=== PATIENT | female | born 1965 | race Hispanic/Latino ===

== ENCOUNTER 2017-01-24 12:13 | Day surgery (SDC) | payer OTHER ==
[2017-01-11 20:21] VITALS: BMI 26.6
[2017-01-24 12:57] LABS: ADD MANUAL DIFF? NO
[2017-01-24 13:09] LABS: ALB/GLOB RATIO 1.4 (1.1-1.8); ALKALINE PHOSPHATASE 105 U/L (38-133); ALT/SGPT 60 U/L (7-56); AST/SGOT 85 U/L (15-39); BILIRUBIN,TOTAL 0.5 mg/dL (0.2-1.3); BLOOD UREA NITROGEN 9 mg/dL (7-21); CALCIUM 9.3 mg/dL (8.4-10.5); CARBON DIOXIDE 30 mmol/L (21-33); CHLORIDE 101 mmol/L (98-107); GFR AFRICAN-AMERICAN > 60; GLUCOSE,RANDOM 90 mg/dL (70-110); POTASSIUM 3.9 mmol/L (3.6-5.0); SODIUM 139 mmol/L (132-148); TOTAL PROTEIN 6.6 g/dL (5.8-8.3)
[2017-01-24 13:17] LABS: BASO # 0.02 K/mm3 (0.0-2.0); BASO % 0.6 % (0.0-3.0); EOS # 0.1 (0.0-0.7); EOS % 1.4 % (1.5-5.0); GRAN # 2.73 (1.4-6.5); GRAN % 77.1 % (50.0-68.0); HEMATOCRIT 32.1 % (36.0-48.0); LYMPH # 0.6 (1.2-3.4); LYMPH % 16.1 % (22.0-35.0); MEAN CELL VOLUME 87.9 fL (80.0-105.0); MEAN CORPUSCULAR HEMOGLOBIN 29.3 pg (25.0-35.0); MEAN CORPUSCULAR HGB CONC 33.3 g/dl (31.0-37.0); MEAN PLATELET VOLUME 9.7 fl (7.0-11.0); MONO # 0.2 (0.1-0.6); MONO % 4.8 % (1.0-6.0); PLATELET COUNT 181 10^3/uL (120.0-450.0); RED CELL DISTRIBUTION WIDTH 13.1 % (11.5-14.5); WHITE BLOOD COUNT 3.5 10^3/ul (4.5-11.0)
[2017-01-24 13:35] LABS: INR 1.24 (0.93-1.08); PARTIAL THROMBOPLASTIN TIME 26.4 Seconds (23.7-30.8)
[2017-01-24] MEDS ORDERED: Midazolam 2 MG/2 ML VIAL ONE (15:12)
[2017-01-24] MEDS ORDERED: Propofol 10 mg/ml Inj (20 ML) ONE (15:12)
[2017-01-24] MEDS ORDERED: Lidocaine 2% Inj (20ml) ONE ×2 (15:14)
[2017-01-24] MEDS ORDERED: Lactated Ringer's 1,000 ML IV SCH (15:48)
[2017-01-24 17:18] VITALS: RESP 18
[2017-01-24 17:26] VITALS: BP 106/57; PULSE 78; TEMP 98; O2SAT 97
== END 2017-01-24 17:30 | disposition home or self-care (01) ==
LOC: ENDO 12:13
PROVIDERS: ATTEND Internal Medicine
DX: C16.9 Malignant neoplasm of stomach, unspecified (principal)
CPT/HCPCS: 36415; 43259; 80053; 85025; 85610; 85730; J2250; J2704; J3010; J7040; J7120